=== PATIENT | male | born 1995 | race Caucasian/White ===

== ENCOUNTER 2017-03-28 12:15 | Emergency (ER) | payer BC ==
[~2017-03-28] VITALS: Ht 182.9 cm; Wt 66.6 kg
[2017-03-28 12:20] VITALS: TEMP 37.1; Ht 182.9 cm; Wt 66.6 kg
[2017-03-28] MEDS ORDERED: ONDANSETRON INJ 2 MG/ML 2 ML VIAL IV STA (12:42)
[2017-03-28] MEDS ORDERED: SODIUM CHLORIDE 0.9% 1000ML 2,000 ML IV STA (12:42)
--- NOTE | 2017-03-28 13:09 | DIAGNOSTIC IMAGING REPORT ---
CHEST ONE VIEW PORTABLE CLINICAL HISTORY: cough dyspnea COMPARISON STUDY: No previous studies for comparison. FINDINGS: The bones soft tissues and hemidiaphragms are normal. The cardiomediastinal silhouette is normal. The lungs are clear. The pulmonary vasculature is normal. IMPRESSION: Negative chest. The above report was generated using voice recognition software. It may contain grammatical, syntax or spelling errors. Electronically signed by: Jose Desouza M.D. 03/28/2017 1:07 PM Dictated Date/Time: 03/28/2017 1:07 PM
[2017-03-28 13:26] LABS: EOS % 0.4 %; EOS ABS # 0.01 K/uL (0-0.5); HEMATOCRIT 45.1 % (42-52); IG# 0.01 K/uL (0.00-0.02); LYMPH % 20.9 %; LYMPH ABS # 0.58 K/uL (1.2-3.4); MEAN CELL VOLUME 86.1 fL (80-100); MEAN CORPUSCULAR HEMOGLOBIN 30.5 pg (25-34); MEAN CORPUSCULAR HGB CONC 35.5 g/dl (32-36); MEAN PLATELET VOLUME 10.8 fL (7.4-10.4); MONO % 12.6 %; MONO ABS # 0.35 K/uL (0.11-0.59); NEUT % 65.7 %; NEUT ABS # 1.82 K/uL (1.4-6.5); PLATELET COUNT 105 K/uL (130-400); RED CELL DISTRIBUTION WIDTH CV 12.6 % (11.5-14.5); RED CELL DISTRIBUTION WIDTH SD 39.8 fL (36.4-46.3); WHITE BLOOD COUNT 2.77 K/uL (4.8-10.8)
--- NOTE | 2017-03-28 13:34 | DIAGNOSTIC IMAGING REPORT ---
HEAD WITHOUT CONTRAST (CT) CT DOSE: 614.27 mGy.cm HISTORY: Visual change. Mental status change. spotty vision TECHNIQUE: Multiaxial CT images of the head were performed without the use of intravenous contrast. A dose lowering technique was utilized adhering to the principles of ALARA. Comparison: None. Findings: The paranasal sinuses and mastoid air cells are clear. The calvarium and skull base are intact. The ventricles and sulci are within normal limits. There is no mass, hematoma, midline shift, or acute infarct. Impression: No acute intracranial abnormality. The above report was generated using voice recognition software. It may contain grammatical, syntax or spelling errors. Electronically signed by: Jose Desouza M.D. 03/28/2017 1:33 PM Dictated Date/Time: 03/28/2017 1:32 PM
[2017-03-28 13:48] LABS: ALBUMIN 3.8 gm/dl (3.4-5.0); CALCIUM 8.9 mg/dl (8.5-10.1); CREATININE 1.17 mg/dl (0.60-1.40); POTASSIUM 3.7 mmol/L (3.5-5.1)
[2017-03-28 13:51] LABS: TOTAL PROTEIN 6.6 gm/dl (6.4-8.2)
[2017-03-28 13:54] LABS: INFLUENZA B ANTIGEN POS for Influ B (NEG)
[2017-03-28] MEDS ORDERED: BENZ100C18 PO (14:36)
[2017-03-28 14:54] VITALS: BP 111/65; PULSE 78; O2SAT 97
--- NOTE | 2017-03-28 18:24 | EMERGENCY ROOM VISIT NOTE ---
History Report prepared by Mery: Eric Jeter Under the Supervision of: Dr. Praveen Brito D.O. First contact with patient: 12:30 Chief Complaint: FLU LIKE SX Stated Complaint: FAINTING, LOW HEART RATE History of Present Illness The patient is a 21 year old male who presents to the Emergency Room with complaints of worsening influenza-like symptoms that began three days ago. He denies any known past medical history. His symptoms began early in the morning several days ago with generalized body aches, chills, a productive cough, rhinorrhea, sore throat, bilateral ear congestion, and a fever of 101 F. He presented to [facility] on [facility] and received a negative influenza test. He was told he had a viral infection and that he should self isolate and use Tylenol. He did this until his symptoms worsened yesterday. He began to have episodes of diarrhea. His chills progressively worsened and he began to see "white spots" in his vision. This morning he went to [facility] to be rechecked. While being evaluated, he became very lightheaded and had a near syncope episode. They then sent him here for further evaluation. He notes that he feels mildly fatigued, but denies any focal weakness. He denies any chest pain, shortness of breath, abdominal pain, nausea, and vomiting. Source of History: patient Onset: three days ago Position: other (global) Symptom Intensity: moderate Quality: other (Flu-like symptoms) Timing: worsening Associated Symptoms: + fevers, + chills, + sorethroat, + cough, + diarrhea, + fatigue, No chest pain, No SOB, No nausea, No vomiting, No abdominal pain, No weakness Note: He is having bilateral ear congestion, rhinorrhea, and lightheadedness. Review of Systems See HPI for pertinent positives & negatives. A total of 10 systems reviewed and were otherwise negative. Past Medical & Surgical Medical Problems: (1) No Known Active Medical Problems Family History Patient reports no known family medical history. Social History Smoking Status: Never Smoker Smokeless Tobacco Use: No Drug Use: none Marital Status: single Occupation Status: student Current/Historical Medications Scheduled Benzonatate (Tessalon Perles), 100 MG PO TID Allergies Coded Allergies: No Known Allergies (Unverified , 03/28/17) Physical Exam Vital Signs Date Time Temp Pulse Resp B/P (MAP) Pulse Ox O2 Delivery O2 Flow Rate FiO2 03/28/17 14:54 78 18 111/65 97 03/28/17 14:24 73 18 113/74 98 Room Air 03/28/17 12:20 37.1 93 20 119/71 99 Room Air Physical Exam GENERAL: Sitting up in bed, alert, well appearing, well nourished, no distress, non-toxic EYE EXAM: normal conjunctiva. PERRL and EOM's intact. EAR EXAM: Clear TM's bilaterally. OROPHARYNX: no exudate, erythema present, lips, buccal mucosa, and tongue normal and mucous membranes are moist NECK: supple, no nuchal rigidity, no adenopathy, non-tender, negative Brudzinski 's. LUNGS: Clear to auscultation. Normal chest wall mechanics HEART: no murmurs, S1 normal and S2 normal ABDOMEN: abdomen soft, non-tender, normo-active bowel sounds, no masses, no rebound or guarding. BACK: Back is symmetrical on inspection and there is no deformity, no midline tenderness, no CVA tenderness. SKIN: no rashes and no bruising UPPER EXTREMITIES: upper extremities are grossly normal. LOWER EXTREMITIES: No pitting edema. NEURO EXAM: Normal sensorium, cranial nerves II-XII intact, normal speech, no weakness of arms, no weakness of legs. No drift. Finger to nose intact. Gross sensation intact. Medical Decision & Procedures ER Provider Diagnostic Interpretation: Radiology results as stated below per my review and the radiologist's interpretation: CHEST ONE VIEW PORTABLE CLINICAL HISTORY: cough dyspnea COMPARISON STUDY: No previous studies for comparison. FINDINGS: The bones soft tissues and hemidiaphragms are normal. The cardiomediastinal silhouette is normal. The lungs are clear. The pulmonary vasculature is normal. IMPRESSION: Negative chest. The above report was generated using voice recognition software. It may contain grammatical, syntax or spelling errors. Electronically signed by: Jose Desouza M.D. 03/28/2017 1:07 PM Dictated Date/Time: 03/28/2017 1:07 PM HEAD WITHOUT CONTRAST (CT) CT DOSE: 614.27 mGy.cm HISTORY: Visual change. Mental status change. spotty vision TECHNIQUE: Multiaxial CT images of the head were performed without the use of intravenous contrast. A dose lowering technique was utilized adhering to the principles of ALARA. Comparison: None. Findings: The paranasal sinuses and mastoid air cells are clear. The calvarium and skull base are intact. The ventricles and sulci are within normal limits. There is no mass, hematoma, midline shift, or acute infarct. Impression: No acute intracranial abnormality. The above report was generated using voice recognition software. It may contain grammatical, syntax or spelling errors. Electronically signed by: Jose Desouza M.D. 03/28/2017 1:33 PM Dictated Date/Time: 03/28/2017 1:32 PM Laboratory Results 03/28/17 13:00 Red Blood Count 5.24, Mean Corpuscular Volume 86.1, Mean Corpuscular Hemoglobin 30.5, Mean Corpuscular Hemoglobin Concent 35.5, Mean Platelet Volume 10.8, Neutrophils (%) (Auto) 65.7, Lymphocytes (%) (Auto) 20.9, Monocytes (%) (Auto) 12.6, Eosinophils (%) (Auto) 0.4, Basophils (%) (Auto) 0.0, Neutrophils # (Auto ) 1.82, Lymphocytes # (Auto) 0.58, Monocytes # (Auto) 0.35, Eosinophils # (Auto ) 0.01, Basophils # (Auto) 0.00 03/28/17 13:00 Test 03/28/17 13:00 03/28/17 13:12 White Blood Count 2.77 K/uL (4.8-10.8) Red Blood Count 5.24 M/uL (4.7-6.1) Hemoglobin 16.0 g/dL (14.0-18.0) Hematocrit 45.1 % (42-52) Mean Corpuscular Volume 86.1 fL (80-100) Mean Corpuscular Hemoglobin 30.5 pg (25-34) Mean Corpuscular Hemoglobin Concent 35.5 g/dl (32-36) Platelet Count 105 K/uL (130-400) Mean Platelet Volume 10.8 fL (7.4-10.4) Neutrophils (%) (Auto) 65.7 % Lymphocytes (%) (Auto) 20.9 % Monocytes (%) (Auto) 12.6 % Eosinophils (%) (Auto) 0.4 % Basophils (%) (Auto) 0.0 % Neutrophils # (Auto) 1.82 K/uL (1.4-6.5) Lymphocytes # (Auto) 0.58 K/uL (1.2-3.4) Monocytes # (Auto) 0.35 K/uL (0.11-0.59) Eosinophils # (Auto) 0.01 K/uL (0-0.5) Basophils # (Auto) 0.00 K/uL (0-0.2) RDW Standard Deviation 39.8 fL (36.4-46.3) RDW Coefficient of Variation 12.6 % (11.5-14.5) Immature Granulocyte % (Auto) 0.4 % Immature Granulocyte # (Auto) 0.01 K/uL (0.00-0.02) Urine Color DK YELLOW Urine Appearance CLEAR (CLEAR) Urine pH 5.0 (4.5-7.5) Urine Specific [place] 1.034 (1.000-1.030) Urine Protein TRACE (NEG) Urine Glucose (UA) NEG (NEG) Urine Ketones TRACE (NEG) Urine Occult Blood NEG (NEG) Urine Nitrite NEG (NEG) Urine Bilirubin NEG (NEG) Urine Urobilinogen NEG (NEG) Urine Leukocyte Esterase NEG (NEG) Urine WBC (Auto) 1-5 /hpf (0-5) Urine RBC (Auto) 0-4 /hpf (0-4) Urine Hyaline Casts (Auto) 5-10 /lpf (0-5) Urine Epithelial Cells (Auto) >30 /lpf (0-5) Urine Bacteria (Auto) NEG (NEG) Anion Gap 11.0 mmol/L (3-11) Est Creatinine Clear Calc Drug Dose 95.7 ml/min Estimated GFR () 104.1 Estimated GFR (Non- 89.8 BUN/Creatinine Ratio 12.8 (10-20) Calcium Level 8.9 mg/dl (8.5-10.1) Total Bilirubin 0.4 mg/dl (0.2-1) Direct Bilirubin 0.1 mg/dl (0-0.2) Aspartate Amino Transf (AST/SGOT) 30 U/L (15-37) Alanine Aminotransferase (ALT/SGPT) 20 U/L (12-78) Alkaline Phosphatase 53 U/L (45-117) Total Protein 6.6 gm/dl (6.4-8.2) Albumin 3.8 gm/dl (3.4-5.0) Lipase 127 U/L (73-393) Influenza Type A Antigen Neg for Influ A (NEG) Influenza Type B Antigen POS for Influ B (NEG) Laboratory results per my review. Medications Administered Medications (Trade) Dose Ordered Sig/Sidney Route Start Time Stop Time Status Last Admin Dose Admin Sodium Chloride 2,000 ml @ 999 mls/hr Q2H1M STAT IV 03/28/17 12:42 03/28/17 14:42 DC 03/28/17 13:07 999 MLS/HR ECG Indication: syncope (near) Rate (beats per minute): 63 Rhythm: sinus rhythm Findings: other (Right axis, no PVC, normal intervals) Change: Patient's electrocardiogram interpreted by me. ED Course ED COURSE: Vital signs were reviewed and showed normal vitals The patients medical record was reviewed The above diagnostic studies were performed and reviewed. ED treatments and interventions as stated above. 1230: The patient was evaluated in room B8. A complete history and physical examination was performed. 1242: Ordered Zofran Inj 4 mg IV, Sodium Chloride 2000 ml @ 999 mls/hr IV 1434: Upon reevaluation, the patient is resting.I discussed my findings with the patient and he understands and agrees with the treatment plan. Based on the patients age, coexisting illnesses, exam and lab findings the decision to treat as an outpatient was made. The patient remained stable while under my care. The patient appeared well at the time of discharge. Medical Decision Differential diagnosis includes etiologies such as benign positional vertigo, dehydration, hypovolemia, anemia, tumor, infection, hypoglycemia, electrolyte abnormalities, cardiac sources, intracerebral event, toxicologic, neurologic, as well as others were entertained. Patient is a 21-year-old male who presents to ER with with diffuse muscle aches , feeling hot and cold, cough, runny nose and a sore throat associated with ear congestion. He does complain of seeing intermittent white spots eyes he has about 2-3 spots HI. He notes this is typical for when he gets a migraine but he does not have a headache. CBC shows a mild leukopenia with a white count 2.7. BMP all LFTs, bilirubin lipase is unremarkable. UA was contaminated. Influenza B was positive. He G head was negative for unremarkable. Based on patient's symptoms I do believe the palpitations and the intermittent lightheadedness is secondary to dehydration. He was given IV fluids. He was feeling significantly better. There is no signs meningitis or encephalitis on exam. No nuchal rigidity. Patient was updated bedside and discharged follow- up with PCP/[facility] for influenza with symptoms that have been present for longer than 48 hours. He constantly was not given Tamiflu. Instructed both the patient and mom and dad to have his white blood cell count checked within 1 week. Discussed with Pt concerning signs and symptoms to watch out for. Pt was instructed to follow up with their PCP and discussed with the patient their option to return to the ED at anytime for persistent or worsening symptoms. The appropriate anticipatory guidance and out-patient management, including indications for return to the emergency department, were explained at length to the patient and understood. Medication Reconcilliation Current Medication List: was personally reviewed by me Blood Pressure Screening Patient's blood pressure: Normal blood pressure Blood pressure disposition: Did not require urgent referral Impression Primary Impression: Influenza Additional Impression: Leukopenia Scribe Attestation The scribe's documentation has been prepared under my direction and personally reviewed by me in its entirety. I confirm that the note above accurately reflects all work, treatment, procedures, and medical decision making performed by me. Departure Information Dispostion Home / Self-Care Prescriptions Benzonatate (TESSALON PERLES) 100 Mg Cap 100 MG PO TID, #30 CAP Prov: Praveen Brito, DO 03/28/17 Referrals No Doctor, Assigned Forms HOME CARE DOCUMENTATION FORM, IMPORTANT VISIT INFORMATION Patient Instructions My [facility], Rapid Influenza Antigen Nasal or Throat Swab Additional Instructions Please follow up with your primary care doctor with in the next 24 hours. Any worsening of your symptoms, please return to the ED immediately. This includes any fevers greater than 100.4, worsening pain, chest pain, shortness breath, persistent nausea, vomiting, unable to eat or drink, or any other concerning signs or symptoms from your standpoint. Please take Tylenol or Motrin as needed for fevers and muscle aches. Please try to remain as hydrated as possible. Problem Qualifiers Additional Impression: Leukopenia Leukopenia type: unspecified Qualified Codes: D72.819 - Decreased white blood cell count, unspecified
== END 2017-03-28 14:55 | disposition home or self-care (01) ==
LOC: C.EDB 12:16
DX: J10.2 Influenza due to other identified influenza virus with gastrointestinal manifestations (principal); D72.819 Decreased white blood cell count, unspecified; R55 Syncope and collapse; H53.8 Other visual disturbances; R00.2 Palpitations